=== PATIENT | female | born 1995 | race Caucasian/White ===

== ENCOUNTER 2017-07-16 17:05 | Emergency (ER) | payer OTHER ==
[~2017-07-16] VITALS: Ht 157.5 cm; Wt 87.1 kg
[~2017-07-16 17:05] MED LIST: BIRTH CONTROL; IBUPROFEN 600600 M1 PO; MAGIC MOUTHWASH SWISH&SPIT; NEOMYCIN-POLY-7.5 ML OP; OMEPRAZOLE20 M1
[2017-07-16] MEDS ORDERED: PRENATAL PLUS1 EAC5 PO (18:11)
[2017-07-16] MEDS ORDERED: ZANTAC 150MG T150 MG PO (18:11)
[2017-07-16 18:15] LABS: ABSOLUTE NEUTROPHILS 6.5 thou/uL (1.4-8.2); BASOPHILS 0.7 % (0.0-2.0); EOSINOPHILS 1.8 % (0.0-3.0); HEMATOCRIT 37.7 % (37.0-47.0); HEMOGLOBIN 13.1 gm/dL (12.0-15.0); LYMPHOCYTES 22.7 % (24.0-44.0); MCH 31.7 pg (26.0-34.0); MCHC 34.7 g/dL (28.0-37.0); MCV 91.4 fL (80.0-100.0); MONOCYTES 9.2 % (1.0-8.0); PLATELET COUNT 208 thou/uL (150-400); POLYS 65.6 % (36.0-66.0); RBC 4.13 mil/uL (4.20-5.00); WBC 9.9 thou/uL (4.0-11.0)
[2017-07-16 18:21] LABS: CALCIUM 8.7 mg/dL (8.5-10.1); CREATININE 0.8 mg/dL (0.6-1.0); POTASSIUM 3.5 mmol/L (3.5-5.1)
[2017-07-16 18:27] LABS: ALBUMIN 2.9 g/dL (3.4-5.0); TOTAL BILIRUBIN 0.2 mg/dL (<0.1-1.0); TOTAL PROTEIN 6.4 g/dL (6.4-8.2)
[2017-07-16 19:13] VITALS: BP 116/58
[2017-07-17 14:13] LABS: NEISSERIA GONORRHEA-PCR Negative (Negative)
== END 2017-07-16 19:14 | disposition home or self-care (01) ==
LOC: ER 17:05
PROVIDERS: Emergency Medicine
DX: O46.92 Antepartum hemorrhage, unspecified, second trimester (principal); O99.612 Diseases of the digestive system complicating pregnancy, second trimester; Z3A.22 22 weeks gestation of pregnancy; R10.9 Unspecified abdominal pain; K21.9 Gastro-esophageal reflux disease without esophagitis